=== PATIENT | female | born 1965 | race Caucasian/White ===

== ENCOUNTER 2017-05-10 00:04 | Emergency (ER) | payer OTHER, MEDICAID ==
[2017-05-10] MEDS ORDERED: DIAZEPAM INJ 10 MG/2 ML DISP.SYRIN IV ONE (00:19)
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
[2017-05-10 02:36] VITALS: BP 136/88
== END 2017-05-10 02:32 | disposition home or self-care (01) ==
LOC: ER 00:04
DX: M25.511 Pain in right shoulder (principal); G89.29 Other chronic pain; M65.811 Other synovitis and tenosynovitis, right shoulder; M62.838 Other muscle spasm; R56.9 Unspecified convulsions; Z79.899 Other long term (current) drug therapy; Z98.890 Other specified postprocedural states; S70.11XA Contusion of right thigh, initial encounter; M79.651 Pain in right thigh; Y04.8XXA Assault by other bodily force, initial encounter; I10 Essential (primary) hypertension; J45.909 Unspecified asthma, uncomplicated; Z91.041 Radiographic dye allergy status; Z88.8 Allergy status to other drugs, medicaments and biological substances; Z88.3 Allergy status to other anti-infective agents; Z88.5 Allergy status to narcotic agent; Z88.4 Allergy status to anesthetic agent; Z87.892 Personal history of anaphylaxis; Z88.1 Allergy status to other antibiotic agents; Z88.0 Allergy status to penicillin; Z88.2 Allergy status to sulfonamides; Z88.6 Allergy status to analgesic agent
CPT/HCPCS: 99284; 96374; 73030; J3360